=== PATIENT | male | born 1960 | race Caucasian/White ===

== ENCOUNTER 2017-10-26 17:04 | Emergency (ER) | payer BC ==
[2017-10-26] MEDS ORDERED: Acetaminophen 500 MG TAB ONE (17:26)
--- NOTE | 2017-10-26 17:50 | RAD ---
RIGHT SHOULDER THREE VIEWS: History: Fall with injury to shoulder. FINDINGS: Prominent degenerative changes are seen at the AC joint with hypertrophic spurring. No evidence of ac match-e-be-nash-she-wish band fracture. Humeral head is normally positioned. IMPRESSION: Prominent degenerative hypertrophic changes at the AC joint. No acute fracture or dislocation identif ied. POS: [facility]
== END 2017-10-26 18:00 | disposition home or self-care (01) ==
LOC: NAV ERS 17:04
DX: S43.401A Unspecified sprain of right shoulder joint, initial encounter (principal); F17.210 Nicotine dependence, cigarettes, uncomplicated; W11.XXXA Fall on and from ladder, initial encounter
CPT/HCPCS: 99406